=== PATIENT | female | born 1985 | race Hispanic/Latino ===

== ENCOUNTER 2017-01-20 10:23 | Emergency (ER) | payer MEDICAID ==
[2017-01-20 10:57] VITALS: BMI 22.8
--- NOTE | 2017-01-20 11:54 | OBHP ---
Datetime: 01/20/2017 11:22 IP Adm Impression: Postterm, intrauterine IP Chief Complaint Other: postdates testing IP Admit Plan: Observation/Evaluation Admit Comment, IP Provider: 31 y/o at 40w6d EDC 01/14/17 based on LMP 04/09/2016 c/w 1st TM u/ s. Patient sent in by hotel registration clerk Geraldine Wilde for post-dates NST/BPP testing. Patient reports +fm, no lof , no vb, no ctx. PNC: Geraldine Wilde CNM PNI: 1. GBS positive 2. hypothyroidism on levothyroxine 50mcg po daily, 11/19/16 increased from 25mcg daily, TSH 2.54 at 16w6d, TSH 3.7 on 11/19/16 3. anemia H/H on November 21.6/.6, takes iron drops twice a day 4. 45lbs weight gain this Allergies: Morphine, hives/rash/itching after elective nose surgery, doesn't know if affected airw katina since she was sedated already PNL: A+, RI, RPR nr, hbsag neg, hepc v neg, hiv neg, varicella imm, gc/chl neg, ucx neg, GCT 125, vit D 18.3 U/S: Anatomy scan at 21w4d no anomalies visualized POBhx: 04/2015 SAB, 10/2014 TOP-medication, uncomplicated PMhx: denies PSHX: plastic surgery for nose Fam hx: father hear disease, DM, obesity ROS: no fever, chills, no cp, no sob, no abd pain VS: wnl NST interpreted by me: FHR: 125, +accels, no deccels, moderate variability [place]: irregular contractions, not felt by patient A/P: 31y/o P0 at 40w6d here for postdates testing, feeling well Fetus: Category 1 tracing, pending BPP results Labor: not in labor GBS +, will need intrapartum prophylaxis Anemia: cont w/ iron supplementation, management per primary provider, clinically asymptomatic tod ay Hypothyroidism: cont w/ levothyroxine, asymptomatic, management per primary provider Cont observation until BPP results available Extremities - PN: Normal Abdomen - PN: Normal Lungs - PN: Normal Heart - PN: Normal General - PN: Normal FHR - Baseline A Provider: 125 IP Hx Assessment: The History has been Reviewed and is Current Vital Signs Provider: Reviewed; Within Normal Limits IP Chief Complaint: Other NICHD Variability Prov Fetus A: Moderate 6-25bpm NICHD Accel Fetus A IP Provider: 15X15 FHR Category Provider Fetus A: Category I NICHD Decel Fetus A IP Provider: None
--- NOTE | 2017-01-20 12:15 | US ---
PROCEDURE: Biophysical profile HISTORY: postdates testing COMPARISON: None available. TECHNIQUE: Standard protocol for this study/examination. FINDINGS: FINDINGS: Biophysical profile score 8/8 Based on the followin. breathing movements: 2/2 2. Gross body movement: 2/2 3. tone: 2/2 4. Qualitative amniotic fluid index: 2/2 Amniotic fluid index 7.55 cm. Calculated cardiac rate 1 3 2 beats per minute Cephalic presentation. Anterior placenta. IMPRESSION: Biophysical profile score 8/8. Live intrauterine gestation cephalic presentation anterior placenta.
--- NOTE | 2017-01-20 13:02 | OBHP ---
Datetime: 01/20/2017 12:57 IP Adm Impression: Postterm, intrauterine IP Chief Complaint Other: post-dates testing IP Admit Plan: Discharge home Admit Comment, IP Provider: I saw and examined the patient. BPP done: 12/21, official report in [facility] ([facility]) spoke to Geraldine Wilde, patient will call her today to schedule f/u for this week Import Coordinator Andry asked for patient to have repeat CBC and TSH done before discharge, she will follow up results outpatient. Patient given strict kick count, labor, and vaginal bleeding precautions. Patient and report understanding and verbailized they will follow up with Import Coordinator Andry to day. DC home.
--- NOTE | 2017-01-20 13:03 | OBDCSUM ---
Datetime: 01/20/2017 12:40 Discharged to, Provider: Home Follow up at, Provider: Geraldine Wilde((,[facility]) Disch Instr Activity: Normal activity Disch Instr Diet: Regular Discharge Instructions, Provider: Specific instructions as noted Discharge Diagnosis, Provider: Postterm Discharge Time: 01/20/2017 12:45 Follow up in weeks, Provider: to call for appointment Disch Referrals: None Discharge Instruct Comment, Prov: kick-counts, labor, ROM, bleeding precautions given Discharge Comment, Provider: Spoke to Technology Applications Engineer Andry, she will follow up with patient and pending CBC /TSH results. Discharge Diagnosis Prov Other: NST/BPP reassuring
[2017-01-20 13:16] LABS: HEMATOCRIT 33.5 % (34.0-47.0); MEAN CELL VOLUME 90.7 fl (81.0-99.0); MEAN CORPUSCULAR HEMOGLOBIN 29.9 pg (27.0-31.0); RED CELL DISTRIBUTION WIDTH 15.8 % (11.5-14.5); WHITE BLOOD COUNT 11.1 K/uL (4.8-10.8)
[2017-01-20 18:17] VITALS: PULSE 72; O2SAT 100
== END 2017-01-20 13:10 | disposition home or self-care (01) ==
LOC: H.EROB 10:23 → H.EROB2 10:23
DX: O48.0 Post-term pregnancy (principal); Z3A.40 40 weeks gestation of pregnancy; O47.1 False labor at or after 37 completed weeks of gestation

== ENCOUNTER 2017-01-22 19:36 | Inpatient (IN) | payer MEDICAID ==
[2017-01-22 20:02] VITALS: BMI 30.9
[2017-01-23] MEDS ORDERED: Ampicillin 2 GM in Sodium Chloride 0.9% 100 ML IVPB STA (01:54)
--- NOTE | 2017-01-23 08:33 | OBADHP ---
Datetime: 01/22/2017 20:35 Admit Comment, IP Provider: 31yo edc 01/14/17 lmp 04/09_ 12wk us presents for bpp and nst. Pt is followed by ODALYS Archer. she c/o cramping since 2am assoc with brown spotting. denies srom pmhx: hypothyroid; childhood chickenpox pshx: for broken nose allergy: morphine rash medic: pnv; Fe; levothyroxine 50mcg qD Social history: Denies alcohol or illicit drug tobacco use Impression 41.2 week Plan: Nonstress test Biophysical profile Patient discussed with Will Rao gasoline truck operator, OB provider addendum: 23:20 NST reviewed #2variable decels noted prelimin us report: humphrey 7.5 w/bpp 12/21 PE: 1.5/70/-2 p: results d/w pt- concern reg variable decels noted d/w pt. above d/w will rao. advised admission for induction. if pt refuses induction advise overnight o bservation Pelvic Type - PN: Adequate Extremities - PN: Normal Abdomen - PN: Normal Lungs - PN: Normal Heart - PN: Normal Neurologic - PN: Normal HEENT - PN: Normal General - PN: Normal Presentation-Admit: Vertex FHR - Baseline A Provider: 120 Contraction Comments Provider: q5-6min Comments, ACOG Physical Exam: gbs+; ri; hepBneg Gestation - Est Wks by US: 41.2wks IP Chief Complaint: Other NICHD Variability Prov Fetus A: Moderate 6-25bpm NICHD Accel Fetus A IP Provider: 15X15 NICHD Decel Fetus A IP Provider: Variable Dilatation, Provider: 2 Effacement, Provider: 70 Station, Provider: -2 IP Adm Impression: Postterm, intrauterine IP Admit Plan: Observation/Evaluation Datetime: 01/20/2017 12:57 IP Chief Complaint Other: post-dates testing Datetime: 01/20/2017 11:22 IP Hx Assessment: The History has been Reviewed and is Current Vital Signs Provider: Reviewed; Within Normal Limits FHR Category Provider Fetus A: Category I
--- NOTE | 2017-01-23 08:53 | OBADHP ---
Datetime: 01/22/2017 23:32 Admit Comment, IP Provider: 31yo edc 01/14/17 lmp 04/09_ 12wk us presents for bpp and nst. Pt is followed by ODALYS Archer. she c/o cramping since 2am assoc with brown spotting. denies srom pmhx: hypothyroid; childhood chickenpox pshx: for broken nose allergy: morphine rash medic: pnv; Fe; levothyroxine 50mcg qD Social history: Denies alcohol or illicit drug tobacco use Impression 41.2 week Plan: Nonstress test Biophysical profile Patient discussed with Will Rao inside sales associate, OB provider addendum: 23:20 NST reviewed #2variable decels noted prelimin us report: humph[place] 7.5 w/bpp 12/21 PE: 1.5/70/-2 p: admit per will rao IP Admit Plan: Admit to unit
[2017-01-23] MEDS ORDERED: Nalbuphine 20 mg/ml Inj (1 ml) IVP PRN (09:18)
--- NOTE | 2017-01-23 09:32 | US ---
PROCEDURE: Biophysical profile HISTORY: postdate COMPARISON: 01/20/2017.. TECHNIQUE: Standard protocol for this study/examination. FINDINGS: FINDINGS: Biophysical profile score 8/8 Based on the followin. breathing movements: 2/2 2. Gross body movement: 2/2 3. tone: 2/2 4. Qualitative amniotic fluid index: 2/2 Amniotic fluid index 7.25 this corresponds to 5-50th percentile by age Calculated cardiac rate 131. Calculated gestational age 36 weeks 3 days. Gestational age derived from the LMP 41 weeks 1 day. KEITH based on LMP: 01/14/2017. KEITH based on biometry: 02/16/2017. IMPRESSION: Biophysical profile score 8/8. Concordant results (preliminary interpretation) provided by [facility]. Procedure Completed: 21:08 Preliminary ([facility]) Report: Dictated and Authenticated: 21:26 Final Interpretation: 09:30. January 23, 2017.
[2017-01-23] MEDS: Lactated Ringer's 1,000 ML IV SCH ×4 (09:56→19:54)
[2017-01-23] MEDS ORDERED: Fentanyl/Bupivacaine HCl 250 ML EPI ONE (12:25)
[2017-01-23] MEDS ORDERED: Oxytocin 30 units/LR 500ML 30 U/500 ML BAG IV ONE (15:21)
--- NOTE | 2017-01-23 15:50 | OBADHP ---
Datetime: 01/23/2017 11:15 IP Adm Impression Other: 41+2 Admit Comment, IP Provider: GBS positive. significant for anemia in first, second and third trimesters, now improved. significant for elevated TSH, treated with Synthroid 50mcg po daily, and now within norm al levels. Pelvic Type - PN: Adequate Extremities - PN: Normal Abdomen - PN: Normal Back - PN: Normal Breast - PN: Normal Lungs - PN: Normal Heart - PN: Normal Thyroid - PN: Normal Neurologic - PN: Normal HEENT - PN: Normal General - PN: Normal Presentation-Admit: Vertex FHR - Baseline A Provider: 120 Membranes, Provider: Intact Comments, ACOG Physical Exam: 31yo @ 41+2 wks gestation. Admitted for labor Patient complaining of contractions, feels she is not coping well, and asking for epidural. O: Normal PE GBS+, 41+2 ctx 3-4 minutes, lasting a minute moderate variability, +accels, no decels, Cat 1 VE 3, 70%, -1, intact membranes LR IV fluid running @ 125cc/hour A/P @ 41+2, early labor Patient up ad guicho to shower/bathroom Regular diet When IV fluid adequate, epidural to start, then no OOB for patient. Ampicillin 2g loading dose, 1g q 4 with active labor Continue to monitor maternal and well being, CFM Anticipate Gestation - Est Wks by US: 41.2 Pool Provider: Negative IP Hx Assessment: The History has been Reviewed and is Current Vital Signs Provider: Within Normal Limits IP Chief Complaint: Uterine contractions NICHD Variability Prov Fetus A: Moderate 6-25bpm NICHD Accel Fetus A IP Provider: 15X15 FHR Category Provider Fetus A: Category I NICHD Decel Fetus A IP Provider: None Dilatation, Provider: 3 Effacement, Provider: 70 Station, Provider: -1 Genitourinary Exam: Normal DTRs - PN: Normal IP Adm Impression: Term, intrauterine IP Admit Plan: Admit to unit
--- NOTE | 2017-01-23 16:23 | OBPN ---
Datetime: 01/23/2017 11:15 IP Progress Impression: Normal progression of labor; Reassuring heart rate IP Progress Plan: Augmentation; Anticipate Vaginal Delivery Pool Provider: Negative Membranes, Provider: Intact FHR - Baseline A Provider: 120 Gestation - Est Wks by US: 41.2 Presentation-Admit: Vertex IP Progress Note Comment: S: Patient has good pain relief from epidural. Lying left side with peanut ball. Slept about 45 minutes. O: Contractions q 4-6, lasting a minute FHR 120 baseline, +accels, no decels, Cat 1 A/P Early labor Pitocin augmentation, MD notified. Ampicillin 2g loading dose started Continuous monitoring Continue to monitor maternal well being. Anticipate Vital Signs Provider: Reviewed; Within Normal Limits NICHD Accel Fetus A IP Provider: 15X15 FHR Category Provider Fetus A: Category I NICHD Variability Prov Fetus A: Moderate 6-25bpm Dilatation, Provider: 3 Effacement, Provider: 70 Station, Provider: -1 NICHD Decel Fetus A IP Provider: None Datetime: 01/22/2017 20:35 Contraction Comments Provider: q5-6min
[2017-01-23] MEDS: AMPicillin 1 GM in Sodium Chloride 0.9% 100 ML IVPB SCH ×2 (19:50→23:49)
--- NOTE | 2017-01-23 22:02 | OBPN ---
Datetime: 01/23/2017 21:48 IP Progress Impression: Normal progression of labor IP Informed Consent Obtain: Vaginal Delivery; Risks, Benefits and Alternatives Discussed IP Procedures: Artificial ROM IP Progress Plan: Continue present management; Augmentation Membranes, Provider: Ruptured Amniotic Fluid Color, Provider: Bloody Contraction Comments Provider: 2-3 FHR - Baseline A Provider: 120 Gestation - Est Wks by US: 41.2 IP Progress Note Comment: S: good pain relief with epidural. Sitting up in bed with feet lowered. O: Cat 1 tracing, +accel, variable decel with AROM Scant fluid, bloody mucous._ Pitocin at 6milliunit/min A/P: active labor, epidural in place AROM, scant, clear, bloody mucous CFM Continue maternal monitoring for well being Anticipate Vital Signs Provider: Reviewed; Within Normal Limits NICHD Accel Fetus A IP Provider: 15X15 FHR Category Provider Fetus A: Category I NICHD Variability Prov Fetus A: Moderate 6-25bpm Dilatation, Provider: 6 Effacement, Provider: 90 Station, Provider: 0 NICHD Decel Fetus A IP Provider: Variable
--- NOTE | 2017-01-23 23:58 | OBPN ---
Datetime: 01/23/2017 23:41 IP Progress Plan Other: D/C Pitocin IP Progress Impression: Normal progression of labor IP Informed Consent Obtain: Vaginal Delivery IP Procedures: Sterile Vag Exam Membranes, Provider: Ruptured FHR - Baseline A Provider: 120 IP Fetus A Comments: 1 prolonged decel to 80bpm. FHR remains WNL, moderate variability +accels Gestation - Est Wks by US: 41.2 Presentation-Admit: Vertex IP Progress Note Comment: S: Patient resting sitting up, position change to left side attempted, FHR deceleration noted. Right side attempted, deceleration still present. Patient returned to sitting, Pitocin turned off, MD notified, Oxygen applied, FHR recovered to 120-130, remains without decelerati ons. O: FHR deceleration to 80s. Pitocin discontinued, oxygen applied, repositioned to sitting up. F HR remains Cat 1 at this time. Contractions q3, moderate Maternal VS WNL A/P: Active labor Discussed risks and benefits of continuing labor vs. section. Discussed managmen t of FHR deceleration during pushing if they occur. All questions answered. Patient and partner ref use section at this time and wish to continue attempting vaginal at this time, underst anding the risks and benefits of section/FHR distress/vaginal . Pitocin discontinued IV bolus 500cc Oxygen applied at 8L/min Continuous Monitoring, continue to monitor maternal well being Ampicillin IV 1gm q 4, next dose at midnight Anticipate Vital Signs Provider: Reviewed; Within Normal Limits NICHD Accel Fetus A IP Provider: 15X15 FHR Category Provider Fetus A: Category I NICHD Variability Prov Fetus A: Moderate 6-25bpm Dilatation, Provider: 7-8 Effacement, Provider: 90 Station, Provider: 0 NICHD Decel Fetus A IP Provider: Variable; Prolonged
[2017-01-24] MEDS ORDERED: Oxytocin 10 Units/ml Inj ONE (02:04)
[2017-01-24] MEDS: AMPicillin 1 GM in Sodium Chloride 0.9% 100 ML IVPB SCH (03:56)
--- NOTE | 2017-01-24 06:34 | OBPN ---
Datetime: 01/24/2017 06:32 IP Progress Impression: Normal progression of labor IP Informed Consent Obtain: Vaginal Delivery IP Progress Plan: Continue present management FHR - Baseline A Provider: 145 Gestation - Est Wks by US: 41.3 Vital Signs Provider: Reviewed; Within Normal Limits FHR Category Provider Fetus A: Category II NICHD Variability Prov Fetus A: Moderate 6-25bpm Dilatation, Provider: 10 Station, Provider: 1 NICHD Decel Fetus A IP Provider: Early; Variable Datetime: 01/24/2017 06:04 Membranes, Provider: Ruptured Amniotic Fluid Color, Provider: Clear Contraction Comments Provider: q3-4 IP Fetus A Comments: variable decels only with pushing Presentation-Admit: Vertex IP Progress Note Comment: S: feeling presssure with contractions sitting up in bed O: FHR 145 baseline, variable decels with pushing ctx 2.5-4 A/P: full dilitation labor down with epidural CFM, continue to monitor maternal/ well being anticipate NICHD Accel Fetus A IP Provider: 15X15 Effacement, Provider: 100
--- NOTE | 2017-01-24 06:39 | OBPN ---
Datetime: 01/24/2017 06:32 Membranes, Provider: Ruptured Amniotic Fluid Color, Provider: Clear Presentation-Admit: Vertex IP Progress Note Comment: S: feeling her body bearing down with contractions; sitting upright in bed; good pain control, wants to keep epidural as it is O: variable decels with ctx/pushing, good recovery after contraction contractions q 3-4 A/P: laboring down, full dilation Continue to monitor maternal/ well being/CFM Epidural in place anticipate
[2017-01-24] MEDS ORDERED: Fentanyl/Bupivacaine HCl 250 ML EPI ONE (07:45)
[2017-01-24] MEDS: Lactated Ringer's 1,000 ML IV SCH ×2 (07:51→11:26)
[2017-01-24] MEDS ORDERED: AMPicillin 1 GM in Sodium Chloride 0.9% 100 ML IVPB SCH (08:00)
[2017-01-24] MEDS ORDERED: Lidocaine 1% Inj (20ml) ONE (08:57)
--- NOTE | 2017-01-24 13:53 | OBDS ---
DELIVERY PERSONNEL Nurse Comic Book Writer Certified: Gabby Beckman Doctor: Gabby Wilde CNM Scrub Nurse: elena Medical Reception: SANDEEP granado; Anesthesiologist: MD Janet Brazer Repair And Salvage: elena Resident: elena MATERNAL INFORMATION Delivery Anesthesia: Epidural Medications in Delivery: Pitocin Estimated Blood Loss (ml): 200cc Placenta Cultured: No Maternal Complications: Prolonged Labor > 20 Hrs; Prolonged Second Stage > 2 Hrs RN Comments: baby girl ; 9/9; uneventful delivery; see Cnm's notes Provider Comments: Normal Spontaneous Vaginal delivery of Vigorous baby girl delivered KELLI over inta ct perineum with bilateral labial skin tear with epidural anesthesia. AROM with clear fluids, and terminal meconium. Nuchal cord x 1 and once around ankle. Spontaneous delivery of placenta, morrissey presentation, complete with three vessel cord. EBL 200cc Baby cried at as she was placed skin to skin on mother. Cord clamping was delayed, and breast feeding was initiated shortly after . LABOR SUMMARY EDC: 01/14/2017 00:00 No. Babies in Womb: 1 Attempted: No Labor Anesthesia: Epidural LABOR INFORMATION Reason for Induction: Postterm; Oligohydramnios Onset of Labor: 01/23/2017 01:00 Complete Dilatation: 01/24/2017 05:00 Oxytocin: Augmentation Group B Beta Strep: Positive Antibiotics # of Doses: 4 Antibiotics Time of Last Dose: 0800 Steroids Given: None Reason Steroids Not Administered: Not Applicable Other Reason Not Administered: na MEMBRANES Membranes Rupture Method: Artificial Rupture of Membranes: 01/23/2017 21:30 Length of Rupture (hrs): 11.20 Amniotic Fluid Color: Bloody Amniotic Fluid Amount: Scant Amniotic Fluid Odor: Normal STAGES OF LABOR Stage 1 hrs: 28 Stage 1 min: 0 Stage 2 hrs: 3 Stage 2 min: 42 Stage 3 hrs: 0 Stage 3 min: 5 Total Time in Labor hrs: 31 Total Time in Labor min: 47 VAGINAL DELIVERY Episiotomy: None Laceration Extension: First Degree Other Laceration: bilateral labial laceration Laceration Repair: Yes Laceration Repair Note: 3-0 Rapide with 1% lidocaine. Upper bilateral labial splits well approximat ed. Initial Vag Sponge Count: 5 Final Vag Sponge Count: 5 Initial Vag Sharps Count: 1 Final Vag Sharps Count: 1 Sponge Count Correct: Yes Sharps Count Correct: Yes Count Comment: correct BABY A INFORMATION Delivery Date/Time: 01/24/2017 08:42 Method of Delivery: Vaginal Born in Route : No : N/A Forceps: N/A Vacuum Extraction: N/A Shoulder Dystocia : No SHOULDER DYSTOCIA BABY A Infant Delivery Date/Time: 01/24/2017 08:42 PRESENTATION/POSITION BABY A Presentation: Cephalic Cephalic Presentation: Vertex Vertex Position: Left Occipital Anterior Breech Presentation: N/A PLACENTA INFORMATION BABY A Placenta Delivery Time : 01/24/2017 08:47 Placenta Method of Delivery: Spontaneous Placenta Status: Delivered SCORES BABY A Heart Rate 1 min: >100 bpm Resp Effort 1 min: Good Cry Reflex Irritability 1 min: Cough or Sneeze or Pulls Away Muscle Tone 1 min: Active Motion Color 1 min: Body [place], Extremities Blue SCORE 1 MIN: 9 Heart Rate 5 min: >100 bpm Resp Effort 5 min: Good Cry Reflex Irritability 5 min: Cough or Sneeze or Pulls Away Muscle Tone 5 min: Active Motion Color 5 min: Body [place], Extremities Blue SCORE 5 MIN: 9 INFANT INFORMATION BABY A Gestational Age at Delivery: 41.3 Gestational Status: Term Infant Outcome : Liveborn Infant Condition : Stable Infant Sex: Female WEIGHT/LENGTH BABY A Infant Birthweight (gms): 3410 Weight (lb): 7 Infant Weight (oz): 8 CORD INFORMATION BABY A No. Cord Vessels: 3 Nuchal Cord : Around Neck x1, Loose Nuchal Cord Other: na True Knot: na Cord pH Baby Arterial: na Cord pH Baby Venous: na Cord Blood Taken: Yes Banking/Donate Info: na
[2017-01-25 08:16] LABS: BASO # 0.1 K/uL (0.0-0.2); BASO % 0.8 % (0.0-2.0); EOS # 0.3 K/uL (0.0-0.7); EOS % 1.9 % (0.0-4.0); HEMATOCRIT 31.2 % (34.0-47.0); LYMPH # 2.8 K/uL (1.0-4.3); LYMPH % 16.3 % (20.0-40.0); MEAN CORPUSCULAR HGB CONC 32.6 g/dL (33.0-37.0); MEAN PLATELET VOLUME 10.1 fl (7.2-11.7); MONO # 0.8 K/uL (0.0-0.8); MONO % 4.9 % (0.0-10.0); NEUT % 76.1 % (50.0-75.0); RED CELL DISTRIBUTION WIDTH 15.9 % (11.5-14.5); WHITE BLOOD COUNT 17.1 K/uL (4.8-10.8)
--- NOTE | 2017-01-25 08:33 | OBPPN ---
Datetime: 01/25/2017 08:24 PP Pain Prov: Within normal limits PP Nausea Prov: Denies PP Flatus Prov: Yes PP BM Prov: No PP Breasts Prov: Normal PP Heart Prov: Normal PP Lungs Prov: Normal PP Abdomen/Uterus Prov: Normal PP Lochia Prov: Normal PP Vulva/Perineum Prov: Normal PP CVA Tenderness Prov: Normal PP Extremities Prov: Normal PP C/S Incision Prov: Not Applicable PP Progress Prov: Normal PP Impression Prov: Normal progression PP Plan Prov: Continue present management; Discharge PP Progress Note Prov: S: Patient has no complaints. She is without problems. She de sires discharge today, and has spoken to LOCOMOTIVE CRANE ENGINEER regarding discharge for baby. She will follow up with d ischarge baby instructions and return for labs tomorrow morning. O: Normal physical exam Heart: RRR, no murmur Lungs clear bilaterally, no wheeze Uterus @ umbilicus -2, firm, non-tender Lochia: red, scant Vulva/perineum: no edema, no redness or pain Vagina: stitches in place, no edema or pain Legs: no edema, varices, pain or redness Alert and oriented x 3, denies depression or anxiety Bonding well with baby. A/P: Normal Day 1 Dining Room Busser visit tomorrow Instructions discussed: to call for fever, heavy bleeding, foul smelling discharge, breas t problems. Discharge today @ 24 hours per patient request Vital Signs Provider PP: Reviewed; Within Normal Limits
[2017-01-25 23:38] VITALS: BP 136/88; PULSE 64; RESP 20; TEMP 97.6; O2SAT 100
== END 2017-01-25 18:20 | disposition home or self-care (01) | DRG 373 ==
LOC: H.EROB2 19:36 → H.L&D 01-23 00:19 → H.OB/GYN 01-24 12:00
PROVIDERS: ADMIT Midwife; ATTEND Midwife
PROC: 10907ZC Drainage of Amniotic Fluid, Therapeutic from Products of Conception, Via Natural or Artificial Opening (ICD-10-PCS; 2017-01-23)
PROC: 4A1HXCZ Monitoring of Products of Conception, Cardiac Rate, External Approach (ICD-10-PCS; 2017-01-23)
PROC: 10E0XZZ Delivery of Products of Conception, External Approach (ICD-10-PCS; principal; 2017-01-24)
PROC: 0HQ9XZZ Repair Perineum Skin, External Approach (ICD-10-PCS; 2017-01-24)
DX: O48.0 Post-term pregnancy (principal); O63.1 Prolonged second stage (of labor); O70.0 First degree perineal laceration during delivery; O69.81X0 Labor and delivery complicated by cord around neck, without compression, not applicable or unspecified; E03.9 Hypothyroidism, unspecified; O99.02 Anemia complicating childbirth; O99.284 Endocrine, nutritional and metabolic diseases complicating childbirth; O76 Abnormality in fetal heart rate and rhythm complicating labor and delivery; Z3A.41 41 weeks gestation of pregnancy; Z37.0 Single live birth; O99.824 Streptococcus B carrier state complicating childbirth; D64.9 Anemia, unspecified